=== PATIENT | female | born 1955 | race African-American/Black ===

== ENCOUNTER 2017-08-26 14:51 | Inpatient (IN) | payer SELFPAY ==
[2017-08-26 15:10] LABS: POC GLUCOSE 177 mg/dL (70-99)
[2017-08-26 15:26] LABS: ADD MAN DIFF? NO
[2017-08-26] MEDS: BENZONATATE 100 MG CAPSULE. PO (15:26)
[2017-08-26] MEDS: ONDANSETRON PF 4 MG/2 ML VIAL. IV (15:27)
[2017-08-26] MEDS: IV NORMAL SALINE 500ML BAG 500 ML IV (15:27)
[2017-08-26 15:37] LABS: BASO % 1 % (0-3); EOS # 0.1 x10^3/uL (0.0-0.7); EOS % 2 % (0-3); HEMATOCRIT 40.9 % (36.0-47.0); HEMOGLOBIN 13.1 g/dL (12.0-15.5); LYMPH # 2.1 x10^3/uL (1.0-4.8); LYMPH % 37 % (24-48); MEAN CORPUSCULAR HEMOGLOBIN 28 pg (25-35); MEAN CORPUSCULAR HGB CONC 32 g/dL (31-37); MEAN CORPUSCULAR VOLUME 87 fL (79-100); MONO # 0.4 x10^3/uL (0.0-1.1); MONO % 6 % (0-9); NEUT % 54 % (31-73); PLATELET COUNT 230 x10^3/uL (140-400); RED BLOOD COUNT 4.69 x10^6/uL (3.50-5.40); RED CELL DISTRIBUTION WIDTH 14.4 % (11.5-14.5); WHITE BLOOD COUNT 5.6 x10^3/uL (4.0-11.0)
[2017-08-26 15:41] LABS: ANION GAP 10 (6-14); BLOOD UREA NITROGEN 28 mg/dL (7-20); BUN/CREATININE RATIO 18 (6-20); CALCIUM 9.2 mg/dL (8.5-10.1); CARBON DIOXIDE 27 mmol/L (21-32); CHLORIDE 104 mmol/L (98-107); CREATININE 1.6 mg/dL (0.6-1.0); GLUCOSE 196 mg/dL (70-99); POTASSIUM 4.2 mmol/L (3.5-5.1); SODIUM 141 mmol/L (136-145)
[2017-08-26 15:46] LABS: ALBUMIN 2.9 g/dL (3.4-5.0); ALBUMIN/GLOBULIN RATIO 0.6 (1.0-1.7); ALK PHOS 83 U/L (46-116); ALT (SGPT) 89 U/L (14-59); AST (SGOT) 77 U/L (15-37); TOTAL BILIRUBIN 0.4 mg/dL (0.2-1.0); TOTAL PROTEIN 7.9 g/dL (6.4-8.2)
[2017-08-26 15:48] LABS: INR 1.1 (0.8-1.1); PARTIAL THROMBOPLASTIN TIME 30 SEC (24-38); PROTHROMBIN TIME PATIENT 13.4 SEC (11.7-14.0)
[2017-08-26 15:50] LABS: TROPONINI < 0.017 ng/mL (0.000-0.055)
[2017-08-26 15:52] LABS: NT-PRO BNP 151 pg/mL (0-124)
[2017-08-26 16:40] LABS: INFLUENZA A PATIENT NEGATIVE (NEGATIVE)
[2017-08-26 16:41] LABS: INFLUENZA B PATIENT NEGATIVE (NEGATIVE); OBC FLU VALID
[2017-08-26 16:54] LABS: BILIRUBIN,URINE NEGATIVE (NEG); CLARITY,URINE CLEAR; COLOR,URINE YELLOW; GLUCOSE,URINE NEGATIVE (NEG); NITRITE,URINE NEGATIVE (NEG); PH,URINE 6.5; PROTEIN,URINE NEGATIVE (NEG-TRACE)
[2017-08-26 17:15] LABS: BACTERIA,URINE 0 /HPF (0-FEW); RBC,URINE 0 /HPF (0-2); SQUAMOUS EPITHELIAL CELL,UR FEW /LPF
[2017-08-26] MEDS: hydrALAZINE 20 MG/ML VIAL. IVP (17:17)
[2017-08-26] MEDS ORDERED: BENZOCAINE/MENTHOL LOZENGE. PO (18:00)
[2017-08-26] MEDS ORDERED: guaiFENesin DM 200MG/20MG 10 ML SYRUP PO (18:00)
[2017-08-26] MEDS ORDERED: LABETALOL 20 MG/4 ML DISP.SYRIN. IVP (18:00)
[2017-08-26] MEDS ORDERED: ACETAMINOPHEN 325 MG TABLET. PO (18:15)
[2017-08-26] MEDS ORDERED: hydrALAZINE 20 MG/ML VIAL. IVP (18:15)
[2017-08-26] MEDS ORDERED: ONDANSETRON PF 4 MG/2 ML VIAL. IV (18:15)
[2017-08-26] MEDS: guaiFENesin ORAL 200 MG/10 ML LIQUID. PO (18:43)
[2017-08-26] MEDS: cefTRIAXone IV Push 1 GM VIAL. IVP (18:44)
[2017-08-26] MEDS: LOSARTAN POTASSIUM 50 MG TABLET. PO (18:44)
[2017-08-26] MEDS: IPRATRPIUM/ALBUTEROL 0.5/2.5MG 3 ML NEBU. NEB (19:58)
[2017-08-27 05:34] LABS: ADD MAN DIFF? NO
[2017-08-27 05:48] LABS: BASO % 0 % (0-3); EOS # 0.2 x10^3/uL (0.0-0.7); EOS % 3 % (0-3); HEMATOCRIT 38.5 % (36.0-47.0); HEMOGLOBIN 12.3 g/dL (12.0-15.5); LYMPH % 48 % (24-48); MEAN CORPUSCULAR HEMOGLOBIN 28 pg (25-35); MEAN CORPUSCULAR HGB CONC 32 g/dL (31-37); MEAN CORPUSCULAR VOLUME 87 fL (79-100); MONO # 0.6 x10^3/uL (0.0-1.1); MONO % 10 % (0-9); NEUT # 2.4 x10^3uL (1.8-7.7); NEUT % 38 % (31-73); PLATELET COUNT 221 x10^3/uL (140-400); RED BLOOD COUNT 4.42 x10^6/uL (3.50-5.40); RED CELL DISTRIBUTION WIDTH 14.4 % (11.5-14.5); WHITE BLOOD COUNT 6.2 x10^3/uL (4.0-11.0)
[2017-08-27 06:35] LABS: ALBUMIN 2.7 g/dL (3.4-5.0); ALBUMIN/GLOBULIN RATIO 0.6 (1.0-1.7); ALK PHOS 73 U/L (46-116); ALT (SGPT) 78 U/L (14-59); ANION GAP 6 (6-14); AST (SGOT) 60 U/L (15-37); BLOOD UREA NITROGEN 27 mg/dL (7-20); BUN/CREATININE RATIO 21 (6-20); CALCIUM 8.6 mg/dL (8.5-10.1); CARBON DIOXIDE 29 mmol/L (21-32); CHLORIDE 107 mmol/L (98-107); CREATININE 1.3 mg/dL (0.6-1.0); GFR 50.7; GLUCOSE 91 mg/dL (70-99); POTASSIUM 3.8 mmol/L (3.5-5.1); SODIUM 142 mmol/L (136-145); TOTAL BILIRUBIN 0.3 mg/dL (0.2-1.0)
[2017-08-27] MEDS: IPRATRPIUM/ALBUTEROL 0.5/2.5MG 3 ML NEBU. NEB ×2 (07:27→12:19)
[2017-08-27] MEDS: guaiFENesin ORAL 200 MG/10 ML LIQUID. PO (08:19)
[2017-08-27] MEDS: LOSARTAN POTASSIUM 50 MG TABLET. PO (08:19)
[2017-08-27] MEDS: LACTOBACILLUS RHAMNOSUS GG 1 CAPSULE. PO (08:22)
[2017-08-27] MEDS: IV NORMAL SALINE 1000ML BAG 1,000 ML IV (10:07)
== END 2017-08-27 13:54 | disposition home or self-care (01) | DRG 683 ==
LOC: ER 14:51 → 5 SOUTH 17:16
PROVIDERS: Internal Medicine
DX: N17.9 Acute kidney failure, unspecified (principal); N39.0 Urinary tract infection, site not specified; Z68.41 Body mass index [BMI] 40.0-44.9, adult; I16.0 Hypertensive urgency; N18.3 Chronic kidney disease, stage 3 (moderate); B34.9 Viral infection, unspecified; E66.9 Obesity, unspecified; I12.9 Hypertensive chronic kidney disease with stage 1 through stage 4 chronic kidney disease, or unspecified chronic kidney disease; T46.4X5A Adverse effect of angiotensin-converting-enzyme inhibitors, initial encounter
CPT/HCPCS: 36415; 70450; 71046; 76770; 80053; 81001; 82962; 83880; 84484; 85025; 85610; 85730; 87086; 87804; 87804-59; 93005; 94640; 94760; 96361; 96374; 96375; 99285; 99285-25; J0360; J0696; J2405; J7030; J7040; J7620